=== PATIENT | female | born 1950 | race Caucasian/White ===

== ENCOUNTER 2017-09-27 15:12 | Emergency (ER) | payer MEDICARE ==
[~2017-09-27] VITALS: Ht 149.9 cm; Wt 98.2 kg
[~2017-09-27 15:12] MED LIST: ACETAMINOPHEN-H1 TA1 PO; ACTIGALL 300MG300 MG PO; ATIVAN2 MG PO; BUMETANIDE2 M1 PO; BUMEX2 MG PO; KEPPRA1000 MG PO; KEPPRA750 M1 PO; KLOR-CON20 MEQ PO; PROVENTIL0.09 MG/A1; QUALITY CHOICE200 M3 PO; RANITIDINE HCL150 M1 PO; RANITIDINE75 MG PO; SEROQUEL100 MG PO; SPIRONOLACTONE50 M1 PO; SYMBICORT1 AE3 IH; TORSEMIDE100 MG PO; ULTRAM 50MG TAB50 MG PO; VIBRAMYCIN100 MG PO
[2017-09-27 15:22] VITALS: BP 188/79
[2017-09-27] MEDS ORDERED: GABAPENTIN100 MG PO (15:51)
[2017-09-27] MEDS ORDERED: SEROQUEL 200MG200 MG PO ×2 (17:22→17:25)
[2017-09-27] MEDS ORDERED: KEPPRA1000 MG PO ×2 (17:22→17:25)
[2017-09-27] MEDS ORDERED: IPRATROPIUM BROM3 M1 IH ×2 (17:22→17:25)
[2017-09-27] MEDS ORDERED: ATIVAN2 MG PO (17:22)
[2017-09-27] MEDS ORDERED: NORCO 10-325 T1 EACH PO (17:22)
== END 2017-09-27 17:37 | disposition home or self-care (01) ==
LOC: ED 15:12
DX: G40.909 Epilepsy, unspecified, not intractable, without status epilepticus (principal); F41.9 Anxiety disorder, unspecified; J44.9 Chronic obstructive pulmonary disease, unspecified; F17.200 Nicotine dependence, unspecified, uncomplicated; I50.9 Heart failure, unspecified; G89.29 Other chronic pain; F32.9 Major depressive disorder, single episode, unspecified; M54.9 Dorsalgia, unspecified; Z76.0 Encounter for issue of repeat prescription; Z88.5 Allergy status to narcotic agent; Z88.0 Allergy status to penicillin; Z88.2 Allergy status to sulfonamides

== ENCOUNTER 2017-10-16 21:40 | Emergency (ER) | payer MEDICARE ==
[~2017-10-16 21:40] MED LIST changes: +GABAPENTIN100 MG PO; +IPRATROPIUM BROM3 M1 IH; +NORCO 10-325 T1 EACH PO; +SEROQUEL 200MG200 MG PO
[2017-10-16 22:29] LABS: EOS # 0.1 (0.04-0.40); EOS % 1.6 % (1.0-5.0); HEMATOCRIT 43.2 % (37.0-47.0); HEMOGLOBIN 13.4 g/dL (12.5-16.0); LYMPH# 1.7 (1.50-4.00); MEAN CELL VOLUME 96 fl (78-100); MEAN CORPUSCULAR HEMOGLOBIN 30 pg (27-31); MEAN CORPUSCULAR HGB CONC 31 g/dL (33-37); MEAN PLATELET VOLUME 9.5 fl (7.4-10.4); MONO # 0.6 (0.20-0.80); NEU # 4.9 (1.40-6.50); PLATELET COUNT 197 K/mm3 (130-400); RED BLOOD COUNT 4.48 M/mm3 (4.10-5.30); RED CELL DISTRIBUTION WIDTH 15.6 % (11.5-14.5); WHITE BLOOD COUNT 7.3 K/mm3 (4.8-10.8)
[2017-10-16 22:38] LABS: ALBUMIN 3.7 g/dL (3.5-5.0); ALT/SGPT 31 U/L (9-52); AST-SGOT 17 U/L (14-36); BUN/CREATININE RATIO 22.6 (6.0-26.0); CALCIUM 8.4 mg/dL (8.4-10.2); CARBON DIOXIDE 30 mmol/L (22-30); GLUCOSE 114 mg/dL (65-105); POTASSIUM 3.7 mmol/L (3.6-5.0); SODIUM 140 mmol/L (137-145); TOTAL BILIRUBIN 0.4 mg/dL (0.2-1.3); TOTAL PROTEIN 7.6 g/dL (6.3-8.2)
[2017-10-16 22:42] LABS: TROPONIN-I 0.06 ng/mL (0.00-0.06)
[2017-10-16 22:46] LABS: CKMB ISOENZYME 0.9 ng/mL (0.6-3.5)
[2017-10-17] MEDS ORDERED: NORCO 325 MG-51 TA1 PO (00:07)
[2017-10-17] MEDS ORDERED: ATIVAN0.5 MG PO (00:07)
[2017-10-17 00:20] VITALS: BP 148/82
== END 2017-10-17 00:20 | disposition home or self-care (01) ==
LOC: ED 21:40
PROVIDERS: Nurse Practitioner Primary Care
DX: R29.898 Other symptoms and signs involving the musculoskeletal system (principal); M54.9 Dorsalgia, unspecified; G89.29 Other chronic pain; Z76.0 Encounter for issue of repeat prescription; I11.0 Hypertensive heart disease with heart failure; I50.9 Heart failure, unspecified; Z86.73 Personal history of transient ischemic attack (TIA), and cerebral infarction without residual deficits; F17.210 Nicotine dependence, cigarettes, uncomplicated; I87.8 Other specified disorders of veins